=== PATIENT | female | born 1980 | race Caucasian/White ===

== ENCOUNTER 2023-08-12 18:28 | Emergency (ER) | payer OTHER, SELFPAY ==
--- NOTE | ~2023-08-12 | XR_ITS ---
EXAMINATION: XR CHEST CLINICAL INFORMATION: Chest pain. COMPARISON: None available. TECHNIQUE: 2 views of the chest were obtained. FINDINGS: No significant abnormality is noted involving the heart, lungs, mediastinum, bony thorax or soft tissues. XR/XR chest 2V IMPRESSION: Unremarkable examination.
--- NOTE | 2023-08-12 18:30 | ECG_ITS ---
Test Reason : CHEST PAIN Blood Pressure : / mmHG Vent. Rate : 069 BPM Atrial Rate : 069 BPM P-R Int : 000 ms QRS Dur : 080 ms QT Int : 386 ms P-R-T Axes : 000 043 056 degrees QTc Int : 413 ms Normal sinus rhythm with Normal sinus rhythm with PAC's Otherwise normal ECG No previous ECGs available Referred By: Generic ED Physician Electronically Signed By:LEEANN MARCUS MD
[2023-08-12 18:58] LABS: MANUAL DIFF FLAG NO
[2023-08-12 19:02] VITALS: BP 133/77; PULSE 73; RESP 18; TEMP 36.6; O2SAT 99; BMI 33.3
[2023-08-12 19:03] LABS: Basophils Absolute Auto 0.1 X10*3/uL (0.0-0.2); Basophils Percent Auto 0.8 % (0-2); Eosinophils Absolute Auto 0.2 X10*3/uL (0.0-0.4); Eosinophils Percent Auto 2.2 % (0-4); Hemoglobin 11.8 g/dl (12.0-16.0); Imm Gran Abs Auto 0.05 X10*3/uL (0.00-0.03); Imm Gran Pct Auto 0.6 % (0.0-0.4); Lymphocytes Absolute Auto 2.3 X10*3/uL (1.2-4.9); Lymphocytes Percent Auto 28.9 % (20-40); Mean Corpuscular HGB Conc 33.7 g/dl (31.0-35.0); Mean Corpuscular Hemoglobin 30.6 pg (27.0-33.0); Mean Corpuscular Volume 90.7 fL (80.0-98.0); Monocytes Absolute Auto 0.5 X10*3/uL (0.1-1.2); Monocytes Percent Auto 6.3 % (2-11); Neutrophils Absolute Auto 4.8 x10*3/uL (2.0-8.3); Neutrophils Percent Auto 61.2 % (45-73); Platelet Count 240 X10*3/uL (160-400); Red Blood Count 3.86 X10*6/uL (4.20-5.50); Red Cell Distribution Width 14.3 % (11.0-16.0); White Blood Count 7.9 X10*3/uL (4.8-10.8)
[2023-08-12 19:09] LABS: INTERNATIONAL NORM RATIO 1.1 (0.9-1.1); Prothrombin Time 13.1 SEC (11.1-13.3)
[2023-08-12 19:14] LABS: Anion Gap 13 (12-20); Blood Urea Nitrogen 7 mg/dL (9-16); Carbon Dioxide 23 mmol/L (22-29); Chloride 110 mmol/L (96-108); Creatinine Clr Calc Pharmacy 94.4; Estimated Glomerular Filt Rate > 60; Glucose Random 92 mg/dL (60-115); Potassium 3.8 mmol/L (3.3-5.1); Sodium 142 mmol/L (135-145)
[2023-08-12 19:23] LABS: Troponin-I High Sensitivity < 2.7 ng/L (<3.5-17.0)
--- NOTE | 2023-08-12 22:09 | PC.NURSE ---
per comment section pt left at 0004.
--- OUTSIDE RECORDS SUMMARY | 2023-08-13 11:28 | XMS_ITS | Continuity of Care Document ---
Author Organization [facility] ter Address [address] [place] [id number]- Care Team Providers Care Contact Center Professional Name Role Phone Bob Zavala MD, [place] Primary Care Phys [facility] Encounter [facility] [place] Date(s): 04/09/19 - 04/09/[address] [address]- [facility] Encounter Diagnosis Headache(Final) - 04/09/19 Blurred vision, bilateral(Final) - 04/09/19 Optic neuritis(Final) - 04/09/19 Discharge Disposition: A-D/C Home Attending Physician: Rafa Almanza MD Admitting Physician: Rafa Almanza MD Referring Physician: Not on Staff, Referring MD Allergies, Adverse Reactions, Alerts Substance Reaction Severity Status Augmentin Active Bactrim Active Immunizations Given and Recorded Vaccine Date Status Refusal Reason influenza virus vaccine, inactivated 12/05/12 Give n Medications CeleXA 20 mg oral tablet 1 tablet = 20 mg, By Mouth, Daily, # 30 tablet, 0 Refills, Maintenance, 11/17/14 9:27:03, Tablet Start Date: 11/17/14 Status: Ordered Colace sodium 100 mg oral capsule 1 capsule = 100 mg, By Mouth, 2 times a day, PRN for constipation, # 20 capsule, 0 Refills, Maintenance, 11/18/14 13:11:00, Capsule Start Date: 11/18/14 Status: Ordered Dulcolax 10 mg rectal suppository 1 supp = 10 mg, Rectally, Daily, PRN as needed for constipation, # 3 supp, 3 Refills, Maintenance, Suppository Start Date: 11/30/12 Status: Ordered ferrous sulfate 325 mg oral tablet 1 tablet = 325 mg, By Mouth, 2 times a day, # 90 tablet, 0 Refills, Maintenance, 11/18/14 13:09:57,Tablet Start Date: 11/18/14 Status: Ordered ibuprofen 600 mg oral tablet 1 tablet = 600 mg, By Mouth, Every 6 hours, # 40 tablet, 0 Refills, Maintenance, 11/18/14 13:11:23,Tablet Start Date: 11/18/14 Status: Ordered LaMICtal 150 mg oral tablet 1 tablet = 150 mg, By Mouth, 2 times a day, taken together, # 180 tablet, 0 Refills, Maintenance, 11/17/14 9:26:16, Tablet Start Date: 11/17/14 Status: Ordered One Touch Delica Lancets See Instructions, # 1 box, Maintenance, 1 box = 100 lancets 30 gauge lancets to test 4 x day, 09/16/12 12:17:30 Start Date: 09/16/12 Status: Ordered One Touch Ultra Test Strips See Instructions, # 1 bottle, Refills 3, Tot. Refills 3, Maintenance, To test BS 4 times a day 1 bottle =100 test strips, 09/16/12 12:16:54 Start Date: 09/16/12 Status: Ordered oxycodone 5 mg oral tablet 2 tablet = 10 mg, By Mouth, Every 4 hours, PRN for pain, # 40 tablet, 0 Refills, Maintenance, Tablet Start Date: 11/30/12 Status: Ordered predniSONE 50 mg oral tablet 1 tablet = 50 mg, By Mouth, Daily, for 14 days, # 14 tablet, 0 Refills, Acute 04/23/19 20:24:00 EST, 04/09/19 20:24:00 EST, Tablet, [facility]/pharmacy #1972 Start Date: 04/09/19 Stop Date: 04/23/19 Status: Ordered Tylenol with Codeine #3 300 mg-30 mg oral tablet 2 tablet, By Mouth, Every 6 hours, PRN for pain, # 12 tablet, 0 Refills, Maintenance, Tablet Start Date: 11/04/12 Status: Ordered Problem List Condition Effective Dates Status Health Status Inform ant Bronchitis(Confirmed) Active Pelvic pain in female(Confirmed) Active (Confirmed) Active Yeast vaginitis(Confirmed) Active Vital Signs Most recent to oldest [Reference Range]: 1 2 3 Oxygen Saturation [94-100 %] 99 % (04/09/19 8:14 PM) 100 % (04/09/19 7:03 PM) 100 % (04/09/19 4:29 PM) Pulse Rate [55-90 bpm] 74 bpm (04/09/19 8:14 PM) 75 bpm (04/09/19 7:03 PM) 83 bpm (04/09/19 4:29 PM) Blood Pressure [90-138/55-84 mm Hg] 118/85mm Hg (04/09/19 8:14 PM) 124/78mm Hg (04/09/19 7:03 PM) 130/83mm Hg (04/09/19 4:29 PM) Respiratory Rate [16-30 br/min] 18 br/min (04/09/19 8:14 PM) 19 br/min (04/09/19 7:03 PM) 16 br/min (04/09/19 4:29 PM) Temperature [96.8-100.4 DegF] 97.4 DegF (04/09/19 8:14 PM) Mode of Delivery (Oxygen) Room air (04/09/19 8:14 PM) Room air (04/09/19 7:03 PM) Room air (04/09/19 4:29 PM) Blood pressure sites Arm, left (04/09/19 8:14 PM) Arm, left (04/09/19 7:03 PM) Arm, left (04/09/19 4:29 PM) Temperature Route Oral (04/09/19 8:14 PM)
--- OUTSIDE RECORDS SUMMARY | 2023-08-13 11:28 | XMS_ITS | Continuity of Care Document ---
Author Organization [facility] ter Address [address] [place] [address]- Care Team Providers Care Homicide Squad Lieutenant Name Role Phone Bob Zavala MD, [place] [facility] [place] Date(s): 05/26/23 - 05/26/[address] [address] Discharge Disposition: A-D/C Home Attending Physician: Nubia Ugarte MD Admitting Physician: Nubia Ugarte MD Referring Physician: Nubia Ugarte MD Allergies, Adverse Reactions, Alerts Substance Reaction Severity Status Augmentin Active Bactrim Active Immunizations Given and Recorded Vaccine Date Status Refusal Reason influenza virus vaccine, inactivated 12/05/12 Give n Medications Aygestin 5 mg oral tablet See Instructions, Take 1 tablet 3 times per day for 3 days. Then take 1 tablet twice per day for 3 days. Then take daily for 7 days., # 22 tablet, 0 Refills, Maintenance, 01/11/23 12:36:00 EST, Tablet, [facility]pharm[id number], Partial fill upon patient req... Start Date: 01/11/23 Status: Ordered candesartan 8 mg oral tablet 1 tablet = 8 mg, By Mouth, Daily, # 30 tablet, 0 Refills, Maintenance, 05/07/20 10:24:00 EST, Tablet, Partial fill upon patient request if the prescription is for a schedule II opioid drug. Start Date: 05/07/20 Status: Ordered Fish Oil By Mouth, 0 Refills, Maintenance, 05/07/20 10:28:00 EST, Partial fill upon patient request if the prescription is for a schedule II opioid drug. Start Date: 05/07/20 Status: Ordered hydrOXYzine hydrochloride 50 mg oral tablet 1 tablet = 50 mg, By Mouth, 3 times a day, PRN as needed for anxiety, per pt, she takes 1/2 tab andnot very often, 0 Refills, Maintenance, 05/07/20 10:27:00 EST, Partial fill upon patient request ifthe prescription is for a schedule II opioid drug. Start Date: 05/07/20 Status: Ordered metFORMIN 500 mg oral tablet 1 tablet = 500 mg, By Mouth, 2 times a day, # 180 tablet, 0 Refills, Maintenance, 01/11/23 11:37:00EST, Tablet, Partial fill upon patient request if the prescription is for a schedule II opioid drug. Start Date: 01/11/23 Status: Ordered Prilosec OTC = 40 mg, By Mouth, Daily, 0 Refills, Maintenance, 05/07/20 10:26:00 EST, Partial fill upon patient request if the prescription is for a schedule II opioid drug. Start Date: 05/07/20 Status: Ordered Wellbutrin XL 300 mg/24 hours oral tablet, extended release 1 tablet = 300 mg, By Mouth, Daily, per [facility] in the am, # 30 tablet, 0 Refills, Maintenance, 05/07/20 10:24:00 EST, ER Tablet, Partial fill upon patient request if the prescription is for a schedule II opioid drug. Start Date: 05/07/20 Status: Ordered Problem List Condition Confirmation Course Effective Dates Status Health St atus Informant Bronchitis Confirmed Active HTN (hypertension) Confirmed Active Anxiety and depression Confirmed Active Pelvic pain in female Confirmed Active Prediabetes Confirmed Active Confirmed Active Yeast vaginitis Confirmed Active Vital Signs Most recent to oldest [Reference Range]: 1 2 3 Oxygen Saturation [94-100 %] 95 % (05/26/23 5:45 PM) 94 % (05/26/23 5:15 PM) 93 % *L* (05/26/23 4:45 PM) Pulse Rate [55-90 bpm] 80 bpm (05/26/23 12:19 PM) Blood Pressure [90-138/55-84 mm Hg] 144/93mm Hg *H* (05/26/23 5:45 PM) 144/96mm Hg *H* (05/26/23 5:15 PM) 120/85mm Hg (05/26/23 4:45 PM) Respiratory Rate [16-30 br/min] 20 br/min (05/26/23 5:45 PM) 24 br/min (05/26/23 5:15 PM) 21 br/min (05/26/23 4:45 PM) Temperature [96.8-100.4 DegF] 98.1 DegF (05/26/23 2:00 PM) 98.3 DegF (05/26/23 12:19 PM) Mode of Delivery (Oxygen) Room air (05/26/23 2:45 PM) Room air (05/26/23 2:30 PM) Room air (05/26/23 2:00 PM) Blood pressure sites Arm, left (05/26/23 2:00 PM) Arm, left (05/26/23 12:19 PM) Temperature Route Temporal (05/26/23 2:00 PM) Temporal (05/26/23 12:19 PM) Dry Weight 76.6 kg (05/26/23 12:19 PM) Dry Weight Obtained Via Standing scale (05/26/23 12:19 PM) History and physical note * Event Display: History and Physical Hospital Authored Date: * Event Display: History and Physical Hospital Authored Date: Note * Enedina Osborn RN: PERFORM Event Display: Discharge/Transfer Note Hospital Authored Date: [id number] Nursing Discharge Note Entered On: 05/26/2023 18:05 EDT Performed On: 05/26/2023 18:04 EDT by Enedina Osborn RN Nursing Discharge Note 2 Discharge Time : 05/26/2023 17:55 EDT Discharge Level of Care at Discharge : Home/Halfway/Foster Care Patient Left Unit Via : Wheelchair Patient Accompanied Off Unit with : Significant other DC Instructions Provided & Signed by Pt : Yes Patient Understands D/C Instructions : Yes Patient Instructions Discharge Signed : Yes Did Pt have Specialty Bed or Wound Vac : No Enedina Osborn RN - 05/26/2023 18:04 EDT * Enedina Osborn RN: PERFORM Event Display: Patient Education/Instruction Authored Date: [id number] Surgery Adult Discharge Instructions [address] [id number] Name: BWOEN THACKER : 1980?? Visit: 05/26/2023 11:14?? Current Date: 05/26/2023 16:59 ?? Account: [id number]?? Surgery Discharge Instructions We would like to thank you for allowing us to assist you with your healthcare needs. The following includes patient education materials and information regarding your injury/illness. Our entire staffstrives to provide an excellent experience for our patients and their families. PLEASE ENSURE YOU FOLLOW-UP PER THE INSTRUCTIONS BELOW! ?? YOUR OPINION IS IMPORTANT TO US! Please complete the survey you may receive by mail or email. Your feedback will be used to make improvements to the healthcare experiences of our patients and their families. Surveys are administered by [employer]. ?? If further treatment with your primary care physician or another doctor is recommended, it is important for you to keep the appointment. Call your primary care physician or return to the Emergency Department immediately if your condition worsens, fails to improve, or new symptoms develop. If you need to find a doctor, you can call [facility] [employer] Link for a referral at [phone] or toll free at [phone] On [phone] ([phone]) or log in to [email or web address].. ?? [facility], in keeping with [facility] guidance, no longer requires face masks for staff, patientsor visitors in most situations. Similiar to time spent indoors at other locations, there is the chance that you were exposed to repiratory viruses during your time with us (such as flu or COVID-19). If you develop symptoms concerning for a viral respiratory infection, please seek testing (and treatment if indicated) from your medical provider or home test kit. ?? You can view and manage your care through the patient portal or by using a health care jem of your choosing. [employer] is a website that allows you to securely view your medical information including your hospital discharge summary, office visit summaries, medications and follow-up visits. You can also request appointments, renew medications, and request access to your medical information using a health care jem of your choosing, or just ask a question. You are entitled to know the individuals who participated in your treatment. This information is available within your medical record and will be provided upon your request. You can enroll at [email or web address] or register d uring your next office visit. You have been discharged from [facility], Patient Care Unit: [facility]??. If you have any questions regarding these instructions after you leave, please call us and we will be happy to assist you. [facility] Your Care Team Attending Physician Nubia Ugarte MD?? Discharging Providers Nubia Ugarte MD Reason for Admission MENORRHAGIA AUB HYSTEROSCOPY DS CS Primary Care Provider Chio Barnes MD? Advance Directive Health Care Proxy on File No What to do next Instructions From Your Doctor ?? Orders? 05/26/23 13:58:00 EDT?? Instructions from your Care Team Please call Dr. Ugarte's office with any questions/concerns. You Need to Schedule the Following Appointments Follow Up with??Nubia Ugarte Where: [address] [facility], [place] [address]- [facility] (1) Follow Up with??Chio Zavala When:??In 0 days Where: [address] [place] [address]- [facility] (1) Discharge Medications BOWEN THACKER :1980 Visit Date:05/26/2023 Medications: Please continue your medications until treatment is completed or stopped by your provider. You may resume your daily prescription medications. Discuss any questions related to medications with your provider. What How Much When Instructions Next Dose Unchanged BuPROpion (Wellbutrin XL 300 mg/ 24 hours oral tablet, extended release) 1 tab(s) Oral Daily per [facility] take in the am ?? Unchanged Candesartan (candesartan 8 mg oral tablet) 1 tab(s) Oral Daily Unchanged HydrOXYzine (hydrOXYzine hydrochloride 50 mg oral tablet) 1 tab(s) Oral 3 times a day as needed for as needed for anxiety per pt, she takes 1/ 2 tab and not very often ?? Unchanged Metformin (metFORMIN 500 mg oral tablet) 1 tab(s) Oral Twice a day Unchanged Norethindrone (Aygestin 5 mg oral tablet) See instructions Take 1 tablet 3 times per day for 3 days. Then take 1 tablet twice per day for 3 days. Then take daily for 7 days. ?? Unchanged Siren-3 Polyunsaturated Fatty Acids (Fish Oil) Oral Unchanged Omeprazole (Prilosec OTC) 40 Milligram Oral Daily ?? Oxycodone as needed Tylenol next at 7:30pm Ibuprofen next at 7:30pm Allergies (NKA means No Known Allergies) Augmentin Bactrim Education Materials Below is the list of Educational Leaflet Providered with your Discharge Instructions. Valuables and Belongings I fully understand and agree that [facility] accepts no responsibility for all my personal property including clothing, toilet articles, radios, jewelry, dentures, hearing aids, rings, money, or any other property that is in my possession or is brought to me after admission. I understand certain valuables may be placed in a hospital safe for a short period of time. I understand that the hospital is not liable for loss or damage due to accident, fire, or other natural occurrence while said property is in the safe. I accept full responsibility for any personal property that I keep with me, and will not hold the hospital responsible in case of loss or disappearance. I acknowledge that i have been encouraged to send valuables and belongings home. ?? Review of Valuable and Belonging List: With patient Date for Pt to Sign Valuables/Belongings: 05/26/23 12:19:00 ?? Valuables & Belongings ?? Clothes Electronic devices Jewelry Monetary Items Personal devices Miscellaneous Medications (Valuables) Valuables at Bedside Jacket, Pants, Shirt, Shoes, Undergarments Cell phone ?? Credit cards, Wallet Glasses ? Valuables Sent Home ? Valuables Sent to Security ? Other Discharge Information ? Pulmonary Rehab Status?? Pulmonary Rehab Discharge Status?? Respiratory Rate: 19 br/min ? Common Emergency Awareness Tips IS IT A STROKE? Act FAST and Check for these signs: FACE Does the face look uneven? ARM Does one arm drift down? SPEECH Does their speech sound strange? TIME Call 9-1-1 at any sign of stroke ?? Heart Attack Signs Chest discomfort: Most heart attacks involve discomfort in the center of the chest and lasts more than a few minutes, or goes away and comes back. It can feel like uncomfortable pressure, squeezing, fullness or pain. Discomfort in upper body: Symptoms can include pain or discomfort in one or both arms, back, neck, jaw or stomach. Shortness of breath: With or without discomfort. Other signs: Breaking out in a cold sweat, nausea, or lightheaded. Remember, MINUTES DO MATTER. If you experience any of these heart attack warning signs, call to get immediate medical attention! ?? Smoking can increase your chances of developing chronic health problems and can cause harmful effects to other family members in your house. If you smoke, you are strongly encouraged to quit. Please call [facility] [employer] Link at [phone] or 4-705-480[employer] ([phone]) or log in to [email or web address] for referrals to smoking cessation programs. ?? The National Suicide Prevention Hotline is available 28/09 if you or someone you know needs to find a reason to keep living. By calling 4-379-977-51 [employer] (7755) you'll be connected to a skilled, trained counselor at a crisis center in your area. SURGERY DISCHARGE INSTRUCTIONS SIGNATURE PAGE BOWEN THACKER Location:[facility] Registration Date and Time:05/26/2023 11:14 EDT Primary Care Physician: Chio Barnes MD, Attending Physician: Nubia Ugarte MD, I BOWEN THACKER, have received the above patient education materials/instructions and have verbalized understanding. If ambulance or transport services are being used I further acknowledge being given a choice of service. ?? If you need to contact me, please call me at this number: CIS . Patient/Impregnator Name: Bowen Thacker Patient/Impregnator Signature: Relationship to Patient: self Witness Name/Signature: Date: 3/20/24 * Dziel Enedina RIZZO: PERFORM, SIGN, VERIFY Event Display: Patient Education Handout Authored Date: [id number] Patient Care team information Care Team Personnel Name: Melissa Castro Position: S Outreach Member Role: Lifetime Consulting Physician Name: Chio Barnes MD Position: Reference Physician Member Role: PCP Address: Address: [address] [place] [address] Care Team Related Persons Name: SHEREEN LENNON Address: home [address] [place] [id number]
--- OUTSIDE RECORDS SUMMARY | 2023-08-13 11:28 | XMS_ITS | Continuity of Care Document ---
Author Organization [facility] ter Address [address] [place] [id number]- Care Team Providers Care Business Law Professor Name Role Phone Bob Zavala MD, Chio Primary Care Phys ician Encounter [facility] Date(s): 01/11/23 - 01/11/[address] [address]- Discharge Disposition: A-D/C Home Attending Physician: Mackenzie Francis MD Admitting Physician: Mackenzie Francis MD Referring Physician: Mackenzie Francis MD Allergies, Adverse Reactions, Alerts Substance Reaction [...] 0 Refills, Maintenance, 01/11/23 12:36:00 EST, Tablet, [facility]/pharmacy #1972, Partial fill upon patient req... Start [...] Active Confirmed Active Yeast vaginitis Confirmed Active Procedures Procedure Date Related Diagnosis Body Site Status section 1 Comple nilam 1x3 Vital Signs Most recent to oldest [Reference Range]: 1 Weight 72.5 kg (01/11/23 11: AM) Oxygen Saturation [94-100 %] 100 % (01/11/23 11: AM) Pulse Rate [55-90 bpm] 90 bpm (01/11/23 11: AM) Blood Pressure [90-138/55-84 mm Hg] 103/ 79mm Hg (01/11/23 11: AM) Respiratory Rate [16-30 br/min] 18 br/mi n (01/11/23: AM) Temperature [96.8-100.4 DegF] 98 DegF (11/6/23 11:26 AM) Mode of Delivery (Oxygen) Room air (01/11/23 11:26 AM) Blood pressure sites Arm, right 1 (01/11/23 11:26 AM) Temperature Route Oral (01/11/23 11:26 AM) Dry Weight 72.5 kg (01/11/23 11:26 AM) Weight Obtained Via Standing scale (01/11/23 11:26 AM) Dry Weight Obtained Via Standing scale (01/11/23 11:26 AM) 1Result Comment: right upper arm measured 32cm History and physical note * Migdalia KERR, Mackenzie Coleman: PERFORM Event Display: History and Physical Hospital Authored Date: Patient: ??AL-ABSI, CINDY ? Age:??42 Years?Sex:??Female?:??1980?? History of Present Illness 42 yo P3 presents to [facility] for evaluation of AUB. She reports a longstanding history of heavy menstrual bleeding resulting in anemia requiring blood transfusions. She reports she was seen in the [facility] [place] in November where she was initiated on Depo Provera to help control her bleeding. She reports since having her menstrual period in December she has been having daily bleeding. She describes thebleeding some days as light and spotting and other days the bleeding is heavy. She is very frustrated and called the office requesting a medication to stop her bleeding but was told she must come to [facility] for evaluation. She is also frustrated that she needs to be here as she feels this is unnecessary. ?? Furthermore, she continues of vaginal burning and dysuria. Review of Systems Constitutional, HEENT, cardiovascular, respiratory, gastrointestinal, genitourinary, musculoskeletal, skin, endocrine, neurological, psychiatric, hematologic/lymphatic, allergy/immune otherwise reviewed and negative. Physical Exam Vitals & Measurements T:??98?F?? HR:??90??(Peripheral)?? RR:??18?? BP:??103/79?? SpO2:??100%?? WT:??72.5??kg?? General:??Cooperative, well-appearing, in no acute distress. Cardiac: Regular rate. Respiratory: Nonlabored respirations. Speculum: Normal appearing perineum, vulva, urethral meatus, vaginal and cervical mucosa, no lesions appreciated, multiparus-appearing cervix. 3 Scopettes of blood in vault. No active bleeding from cervical os. Bimanual: Tenderness to palpation of anterior vaginal wall. No tenderness to palpation of lateral or posterior knight. Small??and mobile uterus. No adnexal fullness or tenderness. Assessment/Plan Assessment:??42 yo P3 presents [facility] for [facility] of AUB. Vitals stable and wnl. Exam significant for 3 scopettes of blood in the vaginal vault and tenderness to palpation of the anterior vaginalwall. H/H 13.4/41.2. UA and UCx collected to rule out urinary infection in light of her tenderness and dysuria. For her bleeding, will trial a Aygestin taper. Rx sent to patient pharmacy for Aygestin. UA and UCx to be followed up with [facility] provider. ?? Abnormal uterine bleeding (AUB) (N93.9):? Patient and plan discussed with attending.? OB History History?(3,0,0,3)? # 1 ?Baby 1 ?Outcome Date:??2008 ?Outcome or Result:?Gest Age:??Fullterm ? Outcome:??Live ? Sex:??Male ?Hospital:??[facility] ?? # 2 ?Baby 1 ?Outcome Date:??2009 ?Outcome or Result:?Gest Age:??Fullterm ? Outcome:??Live ? Sex:??Male ?Hospital:??[facility] ?? # 3 ?Baby 1 ?Outcome Date:??2012 ?Outcome or Result:?Gest Age:??Fullterm ? Outcome:??Live ? Sex:??Female Active Problem List Active Problem List Anxiety and depression: (Medical) Bronchitis: (Medical) Gestational diabetes: (Obstetric) HTN (hypertension): (Medical) Pelvic pain in female: (Medical) Prediabetes: (Medical) : (Medical) Yeast vaginitis: (Medical) Procedure/Surgical History section Home Medications BuPROpion: 300 mg = 1 tablet, By Mouth, Daily, per [facility] take in the am Candesartan: 8 mg = 1 tablet, By Mouth, Daily HydrOXYzine: 50 mg = 1 tablet, By Mouth, 3 times a day, PRN (as needed for anxiety), per pt, she takes 1/2 tab and not very often Metformin: 500 mg = 1 tablet, By Mouth, 2 times a day Norethindrone: See Instructions, Take 1 tablet 3 times per day for 3 days. Then take 1 tablet twiceper day for 3 days. Then take daily for 7 days. Hamburg-3 Polyunsaturated Fatty Acids: By Mouth Omeprazole: 40 mg, By Mouth, Daily Allergies Augmentin Bactrim Family History No family history recorded. * Catherine Jiang DO: PERFORM Event Display: History and Physical Hospital Authored Date: OB attending: Patient discussed with Dr. Negron; agree with note and plan as written. After further discussion with the RN, the patient requested rx for oral TXA rather than Aygestin - rx Lysteda 1300mg TID x 5 days sent to pt's pharmacy. Will coordinate close outpatient follow up.?? Bleeding precautions reviewed. E.DO Apolinar Note * Louie Draper RN: PERFORM Event Display: Discharge/Transfer Note Hospital Authored Date: Nursing Discharge Note Entered On: 01/11/2023 13:19 EST Performed On: 01/11/2023 13:19 EST by Louie Draper RN Nursing Discharge Note 2 Discharge Time : 01/11/2023 13:15 EST Discharge Level of Care at Discharge : Home/Prison/Foster Care Patient Left Unit Via : Ambulatory Patient Accompanied Off Unit with : Significant other DC Instructions Provided & Signed by Pt : Yes Patient Understands D/C Instructions : Yes Patient Instructions Discharge Signed : Yes Did Pt have Specialty Bed or Wound Vac : No Louie Draper RN - 01/11/2023 13:19 EST * Louie Draper RN: PERFORM Event Display: Patient Education/Instruction Authored Date: [id number] Inpatient Adult Discharge Instructions [address] [address] Name: CINDY LEMON : 1980 Visit: 01/11/2023 11:17:00 Current Date: 01/11/2023 12:52 Account: [id number] Inpatient Adult Discharge Instructions We would like to thank [...] and their families. Surveys are administered by [employer] ?? If further treatment with your primary care physician or another doctor is recommended, it is important for you to keep the appointment. Call your primary care physician or return to the Emergency Department immediately if your condition worsens, fails to improve, or new symptoms develop. If you need to find a doctor, you can call [facility] [employer] for a referral at [phone] or toll free at [phone]) or log in to [email or web address].. ?? [facility], in keeping with [facility] guidance, no longer requires face masks [...] a health care jem of your choosing. [employer] is a website that allows you to securely view your medical information including your hospital discharge summary, office visit summaries, medications and follow-up visits. You can also request appointments, renew medications, and request access to your medical information using a health care jem of your choosing, or just ask a question. You can enroll at [email or web address] or register during your next office visit. You have been discharged from [facility], Patient Care Unit: [id number]. If you have any questions regarding these instructions after you leave, please call us and we will be happy to assist you. [facility] Your Care Team Attending Physician Mackenzie Francis MD Your Diagnosis Abnormal uterine bleeding (AUB) Tests Performed Below is a partial list of the tests performed during your hospitalization. You may have had other tests and procedures not included in this list. Please discuss all test results with your provider. CBC Complete Urinalysis Primary Care Provider Chio Barnes MD Advance Directive Health Care Proxy on File No Patient has a Designated Caregiver: No Discharge Vitals Temperature: 98 DegF Weight: 72.5 kg Pulse Rate: 90 bpm ?? Respiratory Rate: 18 br/min ?? Systolic Blood Pressure: 103 mm Hg ?? Diastolic Blood Pressure: 79 mm Hg ?? Oxygen Saturation: 100 % ?? Studies Pending All tests and labs ordered during this hospital stay have been completed unless listed below. Please discuss all pending results with your provider listed above in these instructions. ?? Type and Screen Urine Culture What to do next Instructions From Your Doctor Discharge Orders Discharge Medications XOCHILT CINYD :1980 Visit Date:01/11/2023 Medications: Please continue your medications until treatment is completed or stopped by your provider. Medications not listed below should be discontinued. Discuss any questions related to medications with your provider. What How Much When Instructions Next Dose New Norethindrone (Aygestin 5 mg oral tablet) See instructions Take 1 tablet 3 times per day for 3 days. Then take 1 tablet twice per day for 3 days. Then take daily for 7 days. ?? Pickup at [facility]/pharmacy #1972 Unchanged BuPROpion (Wellbutrin XL 300 mg/ 24 hours oral tablet, extended release) 1 tab(s) Oral Daily per [facility] take in the am ?? Unchanged Candesartan [...] 1 tab(s) Oral Twice a day Unchanged [place]-3 Polyunsaturated Fatty Acids (Fish Oil) Oral Unchanged Omeprazole (Prilosec OTC) 40 Milligram Oral Daily Pharmacy Information [facility]/pharmacy #1972: [address], [place] [id number] [phone] Test Results Below is a partial list of the most recent Laboratory test results done prior to this discharge. You may have had other tests and procedures not included in this list. Please discuss all test resultswith your provider. CBC (01/11/2023) ???WBC - 7.6 k/mm3???RBC - 4.57 m/mm3???Hgb - 13.4 Gm/dL???Hct - 41.2 %???MCV - 90.2 femtoliters???MCH - 29.3 pg???MCHC - 32.5 g/dL???Platelet Count - 282 k/mm3???RDW-SD - 44.5 femtoliters???MPV - 10.5 femtoliters???Nucleated RBC (Automated) - 0.0 #/100 WBC'S???Abs. NRBC - 0.0 k/mm3 Complete Urinalysis (01/11/2023) ???Appear/Color, Urine - COLORLESS???Specific [place], Urine - 1.009???pH, Urine - 6.0???Albumin, Urine - NEGATIVE???Glucose, Urine - NEGATIVE???Ketones, Urine - NEGATIVE???Bilirubin, Urine - NEGATIVE???Hemoglobin, Urine - 3+???Nitrite, Urine - NEGATIVE???Leukocyte, Urine - NEGATIVE???Urobilinogen - NORMAL? ?WBC's, Urine - 1 /HPF? ?RBC's, Urine - <1 /HPF? ?Squamous Epith - <1 /HPF Allergies (NKA means No Known Allergies) Augmentin Bactrim Problems Active Problems??(8) Anxiety and depression?? Bronchitis?? Gestational diabetes?? HTN (hypertension)?? Pelvic pain in female?? Prediabetes? Yeast vaginitis?? Education Materials Below is the list of Educational Leaflet Providered with your Discharge Instructions. Dysfunctional Uterine Bleeding?? Valuables and Belongings I fully understand and agree that [facility] accepts no responsibility for all my personal [...] encouraged to send valuables and belongings home. ? Other Discharge Information ? Pulmonary Rehab Status?? Pulmonary Rehab Discharge Status?? Respiratory Rate: 18 br/min ? Common Emergency Awareness Tips IS IT A STROKE? Act FAST and Check for these signs: FACE Does the face look uneven? ARM Does one arm drift down? SPEECH Does their speech sound strange? TIME Call at any sign of stroke ?? Heart [...] are strongly encouraged to quit. Please call [facility] [employer] at [phone] or [phone]) or log in to [email or web address] for referrals to smoking cessation programs. ?? 605 Suicide & Crisis Lifeline is available 28/09 if you or someone you know needs to find a reason to keep living. By calling 948 you'll be connected to a skilled, trained counselor at a crisis center in your area. INPATIENT DISCHARGE INSTRUCTIONS SIGNATURE PAGE XOCHILTCINDY Location:[facility] Registration Date and Time:01/11/2023 11:17 EST Primary Care Physician: Bob Zavala MD Hcio, Attending Physician: Penny KERR, Mackenzie, I CINYD LEMON, have received the above patient education materials/instructions and have verbalized understanding. If ambulance or transport services are being used I further acknowledge being given a choice of service. ?? If you need to contact me, please call me at this number: . Patient/Bdr Name: Patient/Bdr Signature: Relationship to Patient: Witness Name/Signature: Date: * Louie Draper RN: PERFORM Event Display: Patient Education Leaflets Authored Date: [id number] Dysfunctional Uterine Bleeding ?? [id number] Dysfunctional Uterine Bleeding Dysfunctional uterine bleeding is also called abnormal uterine bleeding. It's a condition in which bleeding is abnormal??and occurs at unexpected times of the month. This happens because of changes in the hormones that help control a person's menstrual cycle each month. The bleeding may be heavier or instructional media services technician than normal. If you often have heavy bleeding, this can leadto a problem called anemia.??With anemia, your red blood cell count is too low. Red blood cells help carry oxygen throughout your body.??Severe anemia may cause you to look pale and feel very weak ortired. You might also become short of breath easily. To treat dysfunctional uterine bleeding, you may take medicines. If these don???t help, or if you have other symptoms or have reached menopause, you may need more testing and other treatments. Discuss all of your options with your healthcare provider. Home care Medicines If you???re prescribed medicines, take them as directed. Some of the more common medicines you may be prescribed include: ??? Hormone therapy, which includes most methods of hormonal control such as pills, shots, ora hormone-releasing IUD ??? Nonsteroidal anti-inflammatory drugs (NSAIDs), such as ibuprofen ??? Tranexamic acid to help your blood clot ??? Iron supplements, if you have anemia? General care ??? Get plenty of rest if you tire easily. Don't do strenuous exercise. ??? To help ease pain or cramping that may occur with bleeding, try using a heating pad on the lower belly or back. A warm bath may also help. ?? Follow-up care Follow up with your healthcare provider, or as directed. ?? When to get medical advice Call your healthcare provider right away if: ??? Bleeding becomes heavy (soaking 1 pad or tampon every hour for 3 hours) ??? Increased abdominal pain ??? Irregular bleeding gets worse or does not getbetter even with treatment ??? Fever of 100.4??F (38??C) or higher, or as directed by your healthcare provider ??? Signs of anemia, such as pale skin, extreme fatigue or weakness, or shortness of breath ??? Dizziness or fainting? Last Reviewed Date: 2022 ?? [id number] [employer]. All rights reserved. This information is not intended as a substitute for professional medical care. Always follow your healthcare professional's instructions. ?? Patient Care team information Care Team Personnel Name: Melissa Castro Position: [facility] Outreach Member Role: [employer] Consult[employer] Physician Name: Chio Barnes MD Position: Reference Physician Member Role: PCP Address: Address: [address] [place] [id number] Name: Louie Draper RN Position: [facility] OB RN Member Role: Patient Care Provider Care Team Related Persons Name: SHEREEN LENNON Address: home [address] [place] [id number]
== END 2023-08-12 22:10 | disposition left against medical advice (07) ==
PROVIDERS: Emergency Provider Emergency Medicine
DX: R07.89 Other chest pain (principal); R42 Dizziness and giddiness; R11.2 Nausea with vomiting, unspecified; R51.9 Headache, unspecified; Z79.899 Other long term (current) drug therapy
CPT/HCPCS: 36415; 71046; 80048; 84484; 85025; 85610; 93005; 99283

== ENCOUNTER → 2023-08-12 18:30 | Outpatient (BNV) | payer SELFPAY | PROVIDERS: Emergency Provider Emergency Medicine; Visit Provider Internal Medicine Cardiovascular Disease | DX: R07.9 Chest pain, unspecified (principal); R42 Dizziness and giddiness | CPT/HCPCS: 93010 ==